=== PATIENT | male | born 1975 | race Caucasian/White ===

== ENCOUNTER → 2024-05-08 08:53 | Outpatient (REF) | payer BC, SELFPAY ==
[2024-05-08 09:27] LABS: % Basophils 0.5 % (0-2); % Eosinophils 3.1 % (0-6); % Immature Granulocytes 0.4 % (0-0.5); % Lymphocytes 31.4 % (20.5-51.1); % Monocytes 7.1 % (1.7-9.3); % Neutrophils 57.5 % (42.2-75.2); Absolute Eosinophils 0.2 10^3/uL (0-0.7); Absolute Lymphocytes 1.7 10^3/uL (1.2-3.4); Absolute Monocytes 0.4 10^3/uL (0.1-0.6); Absolute Neutrophils 3.1 10^3/uL (1.4-6.5); Hematocrit 42.1 % (39.0-52.0); Hemoglobin 14.4 g/dL (13.0-18.0); Mean Corp Hgb Conc. 34.2 g/dL (33.0-37.0); Mean Corpuscular Hgb 29.9 pg (27.0-31.0); Mean Corpuscular Volume 87.3 fL (80.0-94.0); Mean Platelet Volume 9.3 fL (7.4-10.4); Nucleated Red Blood Cells % 0 % (-); Platelet Count 235 10^3/uL (130-400); Red Blood Cell Count 4.82 10^6/uL (4.70-6.10); White Blood Cell Count 5.5 10^3/uL (4.8-10.8)
[2024-05-08 09:28] LABS: Urine Albumin Negative (Neg - Trace); Urine Bilirubin Negative (Negative); Urine Character Clear (Clear); Urine Color Yellow; Urine Glucose Negative (Negative); Urine Ketone Negative (Negative); Urine Leukocyte Negative (Negative); Urine Nitrite Negative (Negative); Urine Occult Blood Trace (Negative); Urine Urobilinogen Negative (Neg - 1+)
[2024-05-08 09:41] LABS: Urine Mucus Moderate
[2024-05-08 09:42] LABS: Urine Red Blood Cell 0-2 /HPF (0-2); Urine White Cell None Seen /HPF (0-5)
[2024-05-08 10:23] LABS: Glycohemoglobin (HgbA1c) 5.1 % (4.0-5.6)
[2024-05-08 10:55] LABS: ALT (SGPT) 28 U/L (0-50); AST (SGOT) 26 U/L (17-59); Albumin 4.7 g/dl (3.5-5.0); Alkaline Phosphatase 60 U/L (38-126); Blood Urea Nitrogen 19 mg/dl (9-20); Calcium 9.3 mg/dl (8.4-10.2); Carbon Dioxide 29 mmol/L (22-30); Chloride 102 mmol/L (98-107); Glucose 92 mg/dl (70-99); HDL Cholesterol 56 mg/dl; LDL Cholesterol, Calculated 163 mg/dl; Magnesium 2.1 mg/dl (1.6-2.3); Potassium 4.6 mmol/L (3.5-5.1); Sodium 144 mmol/L (135-145); Total Bilirubin 0.8 mg/dl (0.2-1.3); Total Cholesterol 231 mg/dl (50-199); Total Protein 7.5 g/dl (6.3-8.2); Triglyceride 63 mg/dl (10-149); Very Low Density Lipoprotein 12 mg/dl (0-30); eGFR > 60.00
[2024-05-08 11:10] LABS: Vitamin D, 25-OH*** 36.3 ng/mL (30-80)
== END ==
LOC: REG 08:53
PROVIDERS: ATTENDING PHYSICIAN Internal Medicine
DX: Z00.00 Encounter for general adult medical examination without abnormal findings (principal)
CPT/HCPCS: 36415; 80053; 80061; 81003; 81015; 82306; 83036; 83735; 84443; 85025

== ENCOUNTER → 2025-05-04 07:27 | Outpatient (REF) | payer BC, SELFPAY ==
[2025-05-04 08:01] LABS: Urine Character Clear (Clear)
[2025-05-04 08:17] LABS: Urine Red Blood Cell 0-2 /HPF (0-2); Urine White Cell 0-2 /HPF (0-5)
[2025-05-04 08:18] LABS: Urine Squamous Cell 0-2 /LPF (Few)
[2025-05-04 08:56] LABS: Hematocrit 42.7 % (39.0-52.0); Hemoglobin 14.4 g/dL (13.0-18.0); Mean Corp Hgb Conc. 33.7 g/dL (33.0-37.0); Mean Corpuscular Volume 90.1 fL (80.0-94.0); Nucleated Red Blood Cells % 0 % (-); Platelet Count 235 10^3/uL (130-400); Red Cell Dist. Width 12.0 % (11.5-14.5)
[2025-05-04 09:03] LABS: ALT (SGPT) 22 U/L (0-50); AST (SGOT) 19 U/L (17-59); Albumin 4.4 g/dl (3.5-5.0); Alkaline Phosphatase 61 U/L (38-126); Blood Urea Nitrogen 18 mg/dl (9-20); Calcium 9.5 mg/dl (8.4-10.2); Carbon Dioxide 31 mmol/L (22-30); Chloride 104 mmol/L (98-107); Glucose 92 mg/dl (70-99); HDL Cholesterol 59 mg/dl; LDL Cholesterol, Calculated 133 mg/dl; Magnesium 2.1 mg/dl (1.6-2.3); Potassium 4.4 mmol/L (3.5-5.1); Sodium 141 mmol/L (135-145); Total Protein 7.5 g/dl (6.3-8.2); Very Low Density Lipoprotein 26 mg/dl (0-30); eGFR > 60.00
[2025-05-04 09:22] LABS: Vitamin D, 25-OH*** 30.4 ng/mL (30-80)
[2025-05-04 09:25] LABS: FSH 5.5 mIU/ml (1.55-9.74)
[2025-05-04 09:35] LABS: TSH 2.27 uIU/ml (0.47-4.68)
[2025-05-04 11:14] LABS: Glycohemoglobin (HgbA1c) 5.0 % (4.0-5.6)
== END ==
LOC: REG 07:27
PROVIDERS: ATTENDING PHYSICIAN Internal Medicine
DX: N62 Hypertrophy of breast (principal); Z00.00 Encounter for general adult medical examination without abnormal findings; E78.00 Pure hypercholesterolemia, unspecified
CPT/HCPCS: 36415; 80053; 80061; 81003; 81015; 82306; 82671; 83001; 83002; 83036; 83735; 84146; 84270; 84402; 84403; 84439; 84443; 85025

== ENCOUNTER 2025-05-04 09:14 | Emergency (ER) | payer BC, SELFPAY ==
[2025-05-04 09:14] VITALS: BMI 23.4
[2025-05-04 09:16] VITALS: BP 149/92
--- NOTE | 2025-05-04 09:47 | ED.GENMED ---
History of Present Illness
General
Chief Complaint: Musculo-Skeletal Complaint
Source: patient
Time Seen by Provider: 05/04/25 09:35
History of Present Illness
History of Present Illness:
49-year-old male is currently being treated for biceps tendinitis and possible labrum injury, due to get an MRI with his orthopedic doctor, status post recent injection, states that he may have stretched his arm out and felt pain in his right
shoulder last night. He was concerned he may have suffered a subluxation and therefore wanted to be sure with an x-ray here. He denies any other injury or fall. No other complaints noted
Past History
Social History
Drug: None
Employment: Employed
Phy Exam
Physical Exam
Physical Exam:
GENERAL: Alert , in no apparent distress
EYE: pupils equal and round
NECK: Supple
ENT: mmm.
CARDIAC: Regular rate and rhythm .
LUNGS: Clear breath sounds bilaterally, no acute respiratory distress, no wheezes/rales/rhonchi
NEUROLOGICAL: Alert and oriented, no focal neuro deficits
SKIN: Warm and dry, skin intact.
MUSCULOSKELETAL: No edema, well perfused. ROM preserved with R UE, mild ttp noted at biceps tendon insertion area, no redness/warmth/swelling. Strength intact. No bony ttp.
PSYCH: Normal and appropriate interaction.
Course
Orders/Labs/Results
Orders:
Orders
05/04/25 09:19
Shoulder, Right 2 Views [CR Shoulder - Right Min 2 View] Urgent
Comment:
Reason For Exam: pain
Vital Signs
Initial and Last Documented VS:
Initial Vital Signs
Temp Pulse Resp BP Pulse Ox
98.5 F 59 16 149/92 100
05/04/25 09:16 05/04/25 09:16 05/04/25 09:16 05/04/25 09:16 05/04/25 09:16
Last Documented Vital Signs
Temp Pulse Resp BP Pulse Ox
98.5 F 59 16 149/92 100
05/04/25 09:16 05/04/25 09:16 05/04/25 09:16 05/04/25 09:16 05/04/25 09:50
*Pulse Oximetry
SaO2: 100
Oxygen Mode of Delivery: Room air
Patient hypoxic: no
*Critical Care Note
Total Time (30-74mins, 75-104mins- exclusive of procedures): Not Applicable
Update Note
Update Note:
Patient presents to the Emergency Department with R shoulder pain
Number and Complexity of Problems Addressed at the Encounter
� Chronic conditions affecting care:
� Acute Exacerbation and/or Progression of Chronic Illness:
� Differential Diagnosis includes:but not limited to muscle strain, dislocatoin, subluxation, tendon tear, etc etc.
Amount and/or Complexity of Data to be Reviewed and Analyzed
� I performed an independent evaluation of and my interpretation is:
EKG:
CT:
Xrays:REVIEWED WITH DR TIDWELL, REPORT SENT TO [facility]IA [facility] Mild abnormal scapular rotation suggested/scapular dyskinesis, which could be related to underlying neuromuscular imbalance.
No acute fracture, dislocation, or shoulder separation. No humeral head subluxation appreciated.
Laboratory Studies:
Other:
� Review of other/old records reveals:
� Clinical information was obtained by an independent historian:
� Prescriptions/Medications Considered but not given:
� Further testing considered but not performed:
Risk of Complications and/or Morbidity or Mortality of Patient Management
� Social determinants of health affecting care:
� Discussion with other providers (PCP, Hospitalists, Consultants, etc):
� Escalation of care including admission/observation vs risk of discharge considered: Patient relieved that no specific dislocation fracture or subluxation appreciated. Will continue anti-inflammatories and follow-up with his
orthopedic doctor.
ED Attending Note
-
Portions of this chart may have been created with voice recognition software.� Occasional wrong word or��sound alike� substitutions may have occurred due to the inherent limitations of voice recognition software.
Discharge Plan
Departure
Patient Disposition: Home (Routine Discharge)
Date of Disposition: 05/04/25
Time of Disposition: 10:09
Patient with high blood pressure during this ER visit?: Yes
Condition: Good
Discharge Problem:
Right shoulder pain
Instructions: BLOOD PRESSURE
Activity Restrictions/Additional Instructions:
PLEASE SEE YOUR ORTHOPEDIC DOCTOR IN FOLLOW UP.
Interventions
Interventions:
*Risk Screen - Suicide Last Done: 05/04/25 09:16
*Neglect/Abuse Screening Last Done: 05/04/25 09:16
Discharge Date and Time
Print Language: AZERI
== END 2025-05-04 10:10 | disposition home or self-care (01) ==
LOC: EMR 09:14
PROVIDERS: EMERGENCY PHYSICIAN Emergency Medicine
DX: M25.511 Pain in right shoulder (principal); R03.0 Elevated blood-pressure reading, without diagnosis of hypertension
CPT/HCPCS: 99283; 73030

== ENCOUNTER → 2025-06-26 13:48 | Outpatient (REF) | payer BC, SELFPAY | LOC: RAD 13:48 | PROVIDERS: ATTENDING PHYSICIAN Student in an Organized Health Care Education/Training Program; FAMILY PHYSICIAN Internal Medicine | DX: M25.511 Pain in right shoulder (principal); S43.431A Superior glenoid labrum lesion of right shoulder, initial encounter | CPT/HCPCS: 23350; 73040; 73222 ==